=== PATIENT | male | born 1975 | race Caucasian/White ===

== ENCOUNTER 2019-01-05 13:23 | Inpatient (IN) | payer BC ==
[2019-01-05] MEDS ORDERED: VANCOMYCIN IVPB ONE (14:06)
[2019-01-05] MEDS ORDERED: NS 0.9% IVPB ONE (14:06)
[2019-01-05] MEDS ORDERED: cefTRIAXone(*) 2 GM in NS 0.9% 100 ML* 100 ML IVPB ONE (14:06)
--- NOTE | 2019-01-05 14:06 | ED ---
HPI Febrile Illness - HPI Summary HPI Summary: This patient is a 43 year old M presenting to [facility] accompanied by his with a chief complaint of a fever since this morning with the highest temperature of 101.3 F this morning [place]. His states that he had a cough for about a week that is productive. His stated that he had a low grade fever last night and started to have chills. He became nauseas and vomited 3 times last night and had 2 episodes of diarrhea. This morning when he woke up he had a fever of 101.3 F which was brought down to 99.1 F with the use of Aleve. He vomited more throughout the day. He stated that [place]ON he had neck pain that radiated down his back and his stated that he had a syncopal episode and fell into their shower door. He stated that he is currently suffering from photophobia and has intense pain behind his eyes that is rated an 8/10 in severity. The condition has been worsening since the onset. He also stated a headache. Pt denies any sore throat, CP, SOB, abdominal pain, dysuria, hematuria , myalgia, edema, rash, or dizziness. The symptoms are aggravated by nothing and alleviated by nothing. The pt has a PMHx of of a hernia repair. He stated that he does not drink or use any other substances. - History of Current Complaint Chief Complaint: EDNeckComplaint Time Seen by Provider: 01/05/19 13:32 Hx Obtained From: Patient, Family/Energy Conservation Technician - Onset/Duration: Started Weeks Ago - 1, Still Present, Worse Since - 01/04/19 Timing: Constant Temperature: 101.3 F Initial Severity: Mild Current Severity: Severe Pain Intensity: 8 Pain Scale Used: 0-10 Numeric Aggravating Factors: Nothing Alleviating Factors: OTC Medicine Associated Signs and Symptoms: Negative - sore throat, CP, SOB, abdominal pain, dysuria, hematuria, myalgia, edema, rash, or dizziness, Chills, Cough - productive, Diarrhea, Headache, Nausea, Stiff Neck, Vomiting - Allergy/Home Medications Allergies/Adverse Reactions: Allergies Allergy/AdvReac Type Severity Reaction Status Date / Time No Known Allergies Allergy Verified 09/19/15 12:23 PMH/Surg Hx/FS Hx/Imm Hx Previously Healthy: No Endocrine/Hematology History: Denies: Hx Diabetes Cardiovascular History: Denies: Hx Hypertension, Hx Pacemaker/ICD History: Denies: Hx Renal Disease Sensory History: Denies: Hx Hearing Aid Psychiatric History: Denies: Hx Panic Disorder - Surgical History Surgery Procedure, Year, and Place: UMBILICAL HERNIA BABY Infectious Disease History: No Infectious Disease History: Denies: Traveled Outside the [place] in Last 30 Days - Social History Occupation: Employed Full-time Lives: With Family Alcohol Use: Occasionally Substance Use Type: Reports: None Smoking Status (MU): Never Smoked Tobacco Review of Systems Positive: Fever - 101.3 F, Chills Positive: Photophobia ENT: Other - stiff neck Negative: Sore Throat Negative: Chest Pain Positive: Cough - productive. Negative: Shortness Of Breath Positive: Vomiting, Diarrhea, Nausea. Negative: Abdominal Pain Negative: dysuria, hematuria Negative: Myalgia, Edema Negative: Rash Neurological: Negative - dizziness Positive: Headache All Other Systems Reviewed And Are Negative: Yes Physical Exam - Summary Physical Exam Summary: Constitutional: Well-developed, Well-nourished, Alert. (-) Distressed Skin: Warm, Dry HENT: Normocephalic; Atraumatic, Oral mucosa is dry Eyes: Conjunctiva normal, Photophobia which is obvious, pain with movement of his eyes Neck: Diminished neck ROM 2nd to pain normal neck. (-) JVD, (-) Stridor, (-) Tracheal deviation Cardio: Rhythm regular, rate normal, Heart sounds normal; Intact distal pulses; The pedal pulses are 2+ and symmetric. Radial pulses are 2+ and symmetric. (-) Murmur Pulmonary/Chest wall: Effort normal. (-) Respiratory distress, (-) Wheezes, (-) Rales Abd: Soft, (-) tenderness, (-) Distension, (-) Guarding, (-) Rebound Musculoskeletal: (-) Edema Lymph: (-) Cervical adenopathy Neuro: Alert, Oriented x3 Psych: Mood and affect Normal Triage Information Reviewed: Yes Vital Signs On Initial Exam: Initial Vitals Temp Pulse Resp BP Pulse Ox 98.9 F 122 24 111/89 97 01/05/19 13:23 01/05/19 13:23 01/05/19 13:23 01/05/19 13:23 01/05/19 13:23 Vital Signs Reviewed: Yes Procedures - Lumbar Puncture Midline Lumbar Paraspinals Position: Sitting, Lateral Decubitus Aseptic Technique: Local Anesthesia, Lidocaine Anesthesia Used: 1.0% Lido Spinal Needle Used: 22 Gauge - 22 guage 3.5 inch Lumbar Puncture Note: The LP was prepped for the procedure and full consent was acquired at 1436. The pt's back was exposed and attempts to find a suitable injection site was completed at 1440. The needles used were 22 gauge 3.5 inch. Iodine was applied to the injection site to clean the area at 1445. Lidocaine Hydrochloride was used to numb the injection site at 1446. The pt was put into position, raising his legs to his chest and held in position by an aide before the lidocaine was applied at 1450. The lumbar was punctured and a check for pressure was taken at 1453. The flow stopped and a new site was used slightly above the original injection site at 1501. L4/L5 there was a minimal amount of fluid output. L3/L4 was used instead. Iodine was used to sterilize the new injection site at 1518. More lidocaine 1% was used to sterilize the injection site at the L3/L4 site. In the left lateral decubitus position we had an immediate flow which stopped quickly. Unable to gain flow when switched to L3/L4. was updated and the pt gave consent to change to the upright position. The pt was put in the upright position at 1552 and the procedure proceeded. Iodine was applied at 1554. The injection site for L4/L5 was prepped and lidocaine 1% was used as a local anesthetic. A sterile sheet was applied around the injection site. The fluid was able to be drawn after a successful spinal tap at 1603. Diagnostics - Vital Signs Vital Signs Temp Pulse Resp BP Pulse Ox 01/05/19 13:23 98.9 F 122 24 111/89 97 - Laboratory Result Diagrams: 01/05/19 14:16 01/05/19 14:16 Lab Statement: Any lab studies that have been ordered have been reviewed, and results considered in the medical decision making process. - CT Brain CT CT Interpretation Completed By: Radiologist Summary of CT Findings: 1. NO EVIDENCE FOR ACUTE INTRACRANIAL ABNORMALITY. 2. EFFUSION WITHIN THE LEFT MASTOID AIR CELLS. ED physician has reviewed this report. - EKG 1403 Cardiac Rate: Tachycardia - 109 BPM EKG Rhythm: Sinus Tachycardia ST Segment: Normal Ectopy: None Summary of EKG Findings: Sinus tachycardia at 109 BPM with Normal [place], Normal Interval, Normal ST, and no STEMI. Interpreted by Dr. Hoyos at 01/05/19 1410. Course/Dx - Course Course Of Treatment: This patient is a 43 year old M presenting to [facility] accompanied by his with a chief complaint of a fever since this morning with the highest temperature of 101.3 F this morning [place]. His states that he had a cough for about a week that is productive. He also had symptoms of N/V/ D, stiff neck, and chills. His PE found: Photophobia which is obvious, pain with movement of his eyes, Diminished neck ROM 2nd to pain, Oral mucosa is dry. The pt meet meningitis criteria. A LP was ordered and the risks and outcomes was disscused with the pt. He agreed and gave his consent to the test. His EKG shows Sinus tachycardia at 109 BPM with Normal [place], Normal Interval, Normal ST , and no STEMI. He received the following medications during his ED course: vancomycin, Acyclovir, Tylonel. The LP was prepped for the procedure and full consent was acquired at 1436. The pt's back was exposed and attempts to find a suitable injection site was completed at 1440. The needles used were 22 gauge 3.5 inch. Iodine was applied to the injection site to clean the area at 1445. Lidocaine Hydrochloride was used to numb the injection site at 1446. The pt was put into position, raising his legs to his chest and held in position by an aide before the lidocaine was applied at 1450. The lumbar was punctured and a check for pressure was taken at 1453. The flow stopped and a new site was used slightly above the original injection site at 1501. L4/L5 there was a minimal amount of fluid output. L3/L4 was used instead. Iodine was used to sterilize the new injection site at 1518. More lidocaine 1% was used to sterilize the injection site at the L3/L4 site. In the left lateral incubus position we had an immediate flow which stopped quickly. Unable to gain flow when switched to L3 /L4. was updated and the pt gave consent to change to the upright position. The pt was put in the upright position at 1552 and the procedure proceeded. Iodine was applied at 1554. The injection site for L4/L5 was prepped and lidocaine 1% was used as a local anesthetic. A sterile sheet was applied around the injection site. The fluid was able to be drawn after a successful spinal tap at 1603. His brain CT shows 1. NO EVIDENCE FOR ACUTE INTRACRANIAL ABNORMALITY. 2. EFFUSION WITHIN THE LEFT MASTOID AIR CELLS. His lab results show that he has abnormal values in CSF Glucose. He will be admitted to [facility] by Dr. Rey, Hospitalist, with a Dx of Viral meningitis, sepsis, and syncope for further care. - Diagnoses Provider Diagnoses: Viral meningitis, Syncope, Sepsis - Provider Notifications Discussed Care Of Patient With: Adam Rey Time Discussed With Above Provider: 17:46 Instructed by Provider To: Admit As Inpatient Discharge - Sign-Out/Discharge Documenting (check all that apply): Patient Departure - admitted Patient Received Moderate/Deep Sedation with Procedure: No - Discharge Plan Condition: Stable Disposition: ADMITTED TO [facility] Referrals: Hawa Dove NP [Primary Care Provider] - - Attestation Statements Document Initiated by Scribe: Yes Documenting Scribe: Jevon Angiln Provider For Whom Scribe is Documenting (Include Credential): Alban Hoyos MD Scribe Attestation: Jevon Roman, scribed for Alban Hoyos MD on 01/05/19 at 1737. Status of Scribe Document: Ready
[2019-01-05] MEDS: NS 0.9% IV ONE ×2 (14:09→14:22)
[2019-01-05 14:24] LABS: ABS Basophils 0.1 10^3/ul (0-0.2); ABS Lymphocytes 0.7 10^3/ul (1.0-4.8); ABS Monocytes 1.1 10^3/ul (0-0.8); ABS Neutrophils 18.9 10^3/ul (1.5-7.7); Hematocrit 41 % (42-52); Hemoglobin 14.5 g/dL (14.0-18.0); Lymphocyte % 3.3 %; Mean Corpuscular HGB Conc 35 g/dL (31-36); Mean Corpuscular Hemoglobin 31 pg (27-31); Mean Corpuscular Volume 89 fL (80-94); Mean Platelet Volume 6.7 fL (7.4-10.4); Platelet Count 253 10^3/uL (150-450); Red Blood Count 4.65 10^6 /uL (4.18-5.48); Red Cell Distribution Width 14 % (10-15); White Blood Count 20.8 10^3/uL (3.5-10.8)
[2019-01-05] MEDS ORDERED: Acetaminophen TAB* 325 MG PO ONE (14:33)
[2019-01-05 14:44] LABS: Activated Partial Thrombo Time 30.5 seconds (26.0-38.0); INR 1.22 (0.82-1.09)
[2019-01-05 14:47] LABS: Albumin 4.2 g/dL (3.2-5.2); Albumin/Globulin Ratio 1.4 (1-3); BUN/Creatinine Ratio 14.2 (8-20); Calcium 9.2 mg/dL (8.6-10.3); EGFR African American 91.8 (>60); EGFR Non-African American 75.9 (>60); Globulin 2.9 g/dL (2-4); Potassium 3.6 mmol/L (3.5-5.0); Total Bilirubin 1.1 mg/dL (0.2-1.0); Total Protein 7.1 g/dL (6.4-8.9)
[2019-01-05] MEDS ORDERED: Acyclovir IV(*) 780 MG in NS 0.9% 250 ML* 250 ML IVPB SCH (15:00)
[2019-01-05] MEDS ORDERED: Acyclovir IV(*) 780 MG in NS 0.9% 250 ML* 250 ML IVPB ONE (15:00)
[2019-01-05] MEDS ORDERED: Vancomycin(*) 2,000 MG in NS 0.9% 500 ML* 500 ML IVPB ONE (15:00)
[2019-01-05 16:40] LABS: Body Fluid Source Cerebral Spinal
[2019-01-05 16:58] LABS: CSF Glucose 87 mg/dL (40-70)
[2019-01-05 17:20] LABS: Body Fluid Mono 2 %
[2019-01-05 17:33] LABS: Urine Appearance Clear; Urine Bacteria Absent (Absent); Urine Bilirubin Negative (Negative); Urine Blood 2+ (Negative); Urine Color Yellow; Urine Glucose Negative (Negative); Urine Ketones Negative (Negative); Urine Nitrite Negative (Negative); Urine Protein Negative (Negative); Urine Red Blood Cell 2+(6-10/hpf) (Absent); Urine Specific Gravity 1.018 (1.010-1.030); Urine Urobilinogen Negative (Negative); Urine White Blood Cell Trace(0-5/hpf) (Absent)
[2019-01-05] MEDS ORDERED: Morphine INJ* 2 MG/ML 1 ML SYRINGE (TWO MG - NEW SYRINGE VERSION) IV PRN (17:55)
[2019-01-05] MEDS ORDERED: Ondansetron INJ* 2 MG/ML VIAL IV PRN (17:55)
[2019-01-05 18:56] LABS: RBC Parasite Smear No Parasites Seen (No Parasite)
--- NOTE | 2019-01-05 19:40 | HP ---
CC: Hawa Jones NP HISTORY AND PHYSICAL: DATE OF ADMISSION: 01/05/19 PRIMARY CARE PROVIDER: Hawa Jones NP CHIEF COMPLAINT: Fever, headaches. HISTORY OF PRESENT ILLNESS: This is a 43-year-old male with no significant past medical history, who presented to the emergency room because of fever. He reports that he noted that he had a fever last night of 99.1 Fahrenheit, he woke up this morning and the fever was 101.3. He took Aleve. The fever was associated with headaches as well as light sensitivity. He states that the headache is frontal in nature, but at times is generalized dull headache, with no alleviating factors. He states the headache got better when he came to the emergency room slightly and when he took some Aleve, but headache is always there. He does not have any nausea or vomiting, no shortness of breath, no chest pain. He is having some cough, but that is chronic in nature, has white- colored sputum production. He has exposure to ticks- in his backyard, multiple ticks. He noted a tick on himself about two weeks ago and few days ago he saw a tick in his garage. PAST MEDICAL HISTORY: None. PAST SURGICAL HISTORY: Hernia repair. HOME MEDICATIONS: None. ALLERGIES: No known drug allergies. FAMILY HISTORY: Mother: Hypertension. Father: Coronary artery disease with stent placement and has immunodeficiency syndrome, on IVIG. SOCIAL HISTORY: The patient lives at home. Does not smoke, no alcohol use. REVIEW OF SYSTEMS: He does not have any dysuria, no urinary hesitancy, no recent weight loss. He is having fevers with chills. HEENT: No sore throat, no change in his vision or his hearing; however, he is having light sensitivity. Chest: He does not have any chest pain, no palpitations, no lower extremity edema. Respiratory: He is having cough; however, no shortness of breath, no paroxysmal nocturnal dyspnea. Abdomen: He does not have any abdominal pain, no nausea, no vomiting, no diarrhea. Extremities: He does not have any leg pain or any arm pain. Neurological: He does not have any confusion, no weakness. PHYSICAL EXAMINATION GENERAL: This is an obese male, lying in bed, in no acute distress. VITAL SIGNS: Blood pressure of 120/63; heart rate of 100; respiratory rate of 13; oxygenation of 96% on room air; T-max here is 101.4 at 1445, currently the temperature is 99.3. HEENT: Pupils are equal, round, reactive to light. Atraumatic, normocephalic. There is no oropharyngeal erythema. NECK: There is no cervical lymphadenopathy. Neck is supple with range of motion intact. LUNGS: There is no tachypnea, no use of accessory muscles. Lungs are clear to auscultation bilaterally with no wheezing, rales, or rhonchi. HEART: No chest wall tenderness. Regular, tachycardia. No murmur. ABDOMEN: Bowel sounds are normoactive in all 4 quadrants. Abdomen is soft, nontender, nondistended. EXTREMITIES: There is no lower extremity edema. NEUROLOGICAL: Alert and oriented x3. Range of motion of the neck is intact. Speech is clear and coherent. No facial droop. No facial asymmetry. Motor is 5/5 in all 4 extremities. SKIN: There are no lesions. No rashes noted on exam. DIAGNOSTIC STUDIES/LAB DATA: White count of 20.8 with absolute neutrophil count of 18.9, hemoglobin of 14.5, platelets of 253. INR 1.22. Sodium of 136, potassium of 3.6, BUN 15, creatinine 1.06, glucose of 156. Total bilirubin of 1.10, AST is 17, ALT 27, alkaline phosphatase of 97. Urinalysis shows 2+ blood , negative for nitrites, leukocyte esterase is negative, wbc's trace, absent bacteria, glucose is negative. CSF showed colorless fluid, clear, WBC of 1, RBC of 2, total cell count of 5, glucose of 87, protein of 35, lymphocytes of 3 with monocytes of 2. The patient underwent a CT scan, which showed no evidence of acute intracranial abnormality and there is effusion within the left mastoid air cells. IMPRESSION AND PLAN: This is a 43-year-old male with no significant past medical history, who presents to the emergency room with fever. The patient also reports to me that he has history of tick bites and [place] the [place] there are multiple ticks, he remembers getting a tick bite about 2 weeks ago, he also noted a tick few days ago in his garage. 1. Fever. At this point, we do not have a definitive source of infection. The patient did receive in the emergency room vancomycin, acyclovir, Rocephin. The patient also underwent an LP. Based on the LP, I am not totally convinced that this is bacterial meningitis. We will pursue tick-borne illness workup. For now, we will continue Rocephin. Follow up culture report as well as further CSF report. I have ordered blood work for babesia, ehrlichia, anaplasma , as well as Lyme disease. 2. Elevated bilirubin. We will monitor this. At this point, the patient does not appear clinically jaundiced. We will obtain an ultrasound of the abdomen. 3. Continue IV fluids, pain control, as well as nausea control. The patient will be on regular diet. The patient will be placed on the medical floor. [id number]/[facility] #: [id number] AMBER
[2019-01-05] MEDS: NS 0.9% 1000 ML** 1,000 ML IV SCH (20:04)
[2019-01-05] MEDS: Acetaminophen TAB* 325 MG PO PRN (22:23)
[2019-01-06] MEDS: Acyclovir IV(*) 780 MG in NS 0.9% 250 ML* 250 ML IVPB SCH ×3 (00:24→15:25)
[2019-01-06 05:40] LABS: ABS Lymphocytes 1.7 10^3/ul (1.0-4.8); ABS Monocytes 1.3 10^3/ul (0-0.8); ABS Neutrophils 17.8 10^3/ul (1.5-7.7); Hematocrit 37 % (42-52); Lymphocyte % 8.3 %; Mean Corpuscular HGB Conc 35 g/dL (31-36); Mean Corpuscular Hemoglobin 32 pg (27-31); Mean Corpuscular Volume 91 fL (80-94); Mean Platelet Volume 7.1 fL (7.4-10.4); Platelet Count 202 10^3/uL (150-450); Red Blood Count 4.11 10^6 /uL (4.18-5.48); Red Cell Distribution Width 14 % (10-15); White Blood Count 20.8 10^3/uL (3.5-10.8)
[2019-01-06] MEDS: Acetaminophen TAB* 325 MG PO PRN ×3 (05:45→20:02)
[2019-01-06 05:58] LABS: Albumin 3.5 g/dL (3.2-5.2); Albumin/Globulin Ratio 1.5 (1-3); BUN/Creatinine Ratio 11.9 (8-20); Calcium 8.3 mg/dL (8.6-10.3); EGFR African American 97.1 (>60); EGFR Non-African American 80.2 (>60); Globulin 2.4 g/dL (2-4); Potassium 3.4 mmol/L (3.5-5.0); Total Bilirubin 0.8 mg/dL (0.2-1.0); Total Protein 5.9 g/dL (6.4-8.9)
[2019-01-06] MEDS: NS 0.9% 1000 ML** 1,000 ML IV SCH ×2 (07:47→20:03)
[2019-01-06] MEDS ORDERED: Butalb/Acetamin/Caff TAB* 1 TAB PO ONE (12:01)
--- NOTE | 2019-01-06 12:02 | PN ---
Subjective Date of Service: 01/06/19 Interval History: Having headache with light sensitivity, no neck pain, Did have fever overnight. Currently afebrile. Family at bedside. Objective Active Medications: Acetaminophen (Tylenol Tab*) 650 mg PO Q6H PRN PRN Reason: PAIN - MODERATE Last Admin: 01/06/19 11:04 Dose: 650 mg Ceftriaxone Sodium 2 gm/ (Sodium Chloride) 100 mls @ 200 mls/hr IVPB Q24HR@ 1400 [facility] Sodium Chloride (Ns 0.9% 1000 Ml) 1,000 mls @ 100 mls/hr IV PER RATE [facility] Last Admin: 01/06/19 07:47 Dose: 100 mls/hr Acyclovir Sodium 780 mg/ (Sodium Chloride) 265.6 mls @ 250 mls/hr IVPB 0730, 1530,2330 [facility] Last Admin: 01/06/19 07:44 Dose: 250 mls/hr Morphine Sulfate (Morphine Inj (Syringe))*) 2 mg IV Q6H PRN PRN Reason: PAIN - SEVERE Ondansetron HCl (Zofran Inj*) 4 mg IV Q6H PRN PRN Reason: NAUSEA Vital Signs - 8 hr 01/06/19 01/06/19 01/06/19 07:30 11:11 11:15 Temperature 98.7 F 99.3 F Pulse Rate 91 95 Respiratory 20 16 18 Rate Blood Pressure 137/70 138/74 (mmHg) O2 Sat by Pulse 95 95 98 Oximetry Oxygen Devices in Use Now: None Appearance: young male lying in bed, not in distress Eyes: PERRLA Ears/Nose/Mouth/Throat: - - poor dentition, mild facial swelling. no sinus tenderness. No neck tenderness, ROM intact, no nuchal rigidity. Respiratory: Symmetrical Chest Expansion and Respiratory Effort, Clear to Auscultation Cardiovascular: NL Sounds; No Murmurs; No JVD, RRR Abdominal: NL Sounds; No Tenderness; No Distention, No Hepatosplenomegaly Extremities: No Edema Neurological: Alert and Oriented x 3 Result Diagrams: 01/06/19 04:41 01/06/19 04:41 Microbiology and Other Data: Microbiology 01/05/19 16:23 CSF Gram Stain (Tube 3) - Final Cerebral Spinal Fluid CSF Culture - Preliminary No Growth Day 1 Assess/Plan/Problems-Billing Assessment: - Patient Problems (1) Fever Current Visit: Yes Status: Acute Code(s): R50.9 - FEVER, UNSPECIFIED SNOMED Code(s): 739381685 Comment: Fever with headache, LP done- clear CSF with total 5 cells, doubt bacterial meningitis. in ED: rec'd vanc, rocephin, acyclovir. having headache w/ photophobia- could be migraine- trial of fiorecet. exposure to ticks: tickborne work up pending results blood cultures negative c/w rocephin, IV fluids antipyretics await resuls of lyme's test, ehrlichia, anaplasma. blood cultures
[2019-01-06] MEDS: cefTRIAXone(*) 2 GM in NS 0.9% 50 ML* 100 ML IVPB SCH (13:42)
[2019-01-07 06:06] LABS: ABS Eosinophils 0.1 10^3/ul (0-0.6); ABS Lymphocytes 1.9 10^3/ul (1.0-4.8); ABS Neutrophils 9.9 10^3/ul (1.5-7.7); Eosinophil % 0.5 %; Hematocrit 36 % (42-52); Hemoglobin 12.5 g/dL (14.0-18.0); Lymphocyte % 14.7 %; Mean Corpuscular HGB Conc 35 g/dL (31-36); Mean Corpuscular Hemoglobin 31 pg (27-31); Mean Corpuscular Volume 89 fL (80-94); Mean Platelet Volume 7.3 fL (7.4-10.4); Platelet Count 208 10^3/uL (150-450); Red Blood Count 4.05 10^6 /uL (4.18-5.48); Red Cell Distribution Width 14 % (10-15); White Blood Count 12.9 10^3/uL (3.5-10.8)
[2019-01-07 06:26] LABS: Calcium 8.5 mg/dL (8.6-10.3); EGFR African American 109.5 (>60); EGFR Non-African American 90.5 (>60); Potassium 3.1 mmol/L (3.5-5.0)
[2019-01-07] MEDS ORDERED: Potassium Chlor TAB* 20 MEQ TAB.ER PO ONE (08:00)
[2019-01-07] MEDS: Acetaminophen TAB* 325 MG PO PRN (09:35)
--- NOTE | 2019-01-07 09:41 | PN ---
Subjective Date of Service: 01/07/19 Interval History: Afebrile Headache is 1/10, reports improved significantly after taking fiorecet yesterday. Having left ear pain Objective Active Medications: Acetaminophen (Tylenol Tab*) 650 mg PO Q6H PRN PRN Reason: PAIN - MODERATE Last Admin: 01/07/19 09:35 Dose: 650 mg Ceftriaxone Sodium 2 gm/ (Sodium Chloride) 100 mls @ 200 mls/hr IVPB Q24HR@ 1400 [facility] Last Admin: 01/06/19 13:42 Dose: 200 mls/hr Morphine Sulfate (Morphine Inj (Syringe))*) 2 mg IV Q6H PRN PRN Reason: PAIN - SEVERE Ondansetron HCl (Zofran Inj*) 4 mg IV Q6H PRN PRN Reason: NAUSEA Vital Signs - 8 hr 01/07/19 01/07/19 02:10 07:25 Temperature 99.1 F 98.3 F Pulse Rate 85 84 Respiratory 20 20 Rate Blood Pressure 142/76 118/59 (mmHg) O2 Sat by Pulse 98 95 Oximetry Oxygen Devices in Use Now: None Appearance: Sitting on chair, not in distress Eyes: PERRLA Ears/Nose/Mouth/Throat: - - Left TM visualized, clear, ear: no exudates noted, no erythema Respiratory: Symmetrical Chest Expansion and Respiratory Effort, Clear to Auscultation Cardiovascular: NL Sounds; No Murmurs; No JVD, RRR Skin: No Rash or Ulcers Neurological: Alert and Oriented x 3 Result Diagrams: 01/07/19 05:02 01/07/19 05:02 Microbiology and Other Data: Microbiology 01/05/19 16:23 CSF Gram Stain (Tube 3) - Final Cerebral Spinal Fluid CSF Culture - Preliminary No Growth Day 2 01/05/19 17:15 Urine Culture - Final Urine No Growth (<1,000 CFU/mL) 01/05/19 14:15 Aerobic Blood Culture - Preliminary Blood Venous No Growth Day 1 Anaerobic Blood Culture - Preliminary No Growth Day 1 01/05/19 14:15 Aerobic Blood Culture - Preliminary Blood Venous No Growth Day 1 Anaerobic Blood Culture - Preliminary No Growth Day 1 Assess/Plan/Problems-Billing Assessment: - Patient Problems (1) Fever Current Visit: Yes Status: Acute Code(s): R50.9 - FEVER, UNSPECIFIED SNOMED Code(s): 510537596 Comment: Fever with headache, LP done- clear CSF with total 5 cells, doubt bacterial meningitis. in ED: rec'd vanc, rocephin, acyclovir. headache improved after fiorecet- likely was migraine. exposure to ticks: tickborne work up pending results- lyme test negative. blood cultures negative c/w rocephin. if blood cultures remain negative later today X 48 hours- plan for discharge. (2) Hypokalemia Current Visit: Yes Status: Acute Code(s): E87.6 - HYPOKALEMIA SNOMED Code( s): 02354308 Comment: repletion ordered
[2019-01-07] MEDS: cefTRIAXone(*) 2 GM in NS 0.9% 50 ML* 100 ML IVPB SCH (14:04)
[2019-01-07] MEDS ORDERED: Butalb/Acetamin/Caff TAB* 1 TAB PO ONE (15:24)
[2019-01-07 18:32] VITALS: BP 133/84
--- NOTE | 2019-01-07 21:41 | DS ---
DISCHARGE SUMMARY: DATE OF ADMISSION: 01/05/19 DATE OF DISCHARGE: 01/07/19 PRIMARY CARE PROVIDER: Hawa Jones NP. REASON FOR ADMISSION: Fevers and headache. HOSPITAL COURSE: This is a 43-year-old male with no significant past medical history, who had presented to the emergency room because of fever and headaches. The patient reports to me that he did not have any neck pain throughout the entire course or prior to coming to the emergency room. In the emergency room, the patient was seen and evaluated and a CAT scan of the head was done which showed no evidence of acute intracranial abnormality. There was effusion noted in the left mastoid air cells. The patient underwent LP as well in the emergency room and the lumbar puncture showed CSF was colorless fluid, clear, wbc of 1, rbc of 2, total cell count of 5, glucose of 87, protein of 35 with lymphocytes 3 and monocytes 2. The patient was also found to have elevated bilirubin. Total bilirubin was 1.10. Subsequently, hospital service was called for admission. The patient was admitted to the floor, was started on IV fluids. In the emergency room, had received acyclovir, Rocephin, and vancomycin. The patient was empirically started on Rocephin. The patient had reported during the admission that he had exposure to tics. For this, blood work for Babesia, ehrlichia, anaplasma, and Lyme disease were sent off. The patient was also started on IV fluids. The patient also underwent a liver ultrasound. Subsequently, the patient continued to improve. The patient's T-max was 101.4 on 01/05/19 at 1445, and the last time he had any sort of fever was . He had 100.2 Fahrenheit T-max on 01/05/19 at 1926, that is not considered fever. The patient's headache also improved. The patient did receive 1 dose of Fioricet which helped his headache as well as had his photosensitivity out. Blood cultures have been negative x48 hours. His white count which was 20.8 during admission had transitioned to 12.9 this morning. The patient also underwent an abdominal ultrasound which showed no evidence of gallstone or acute process. The liver is mildly echogenic and measures 16 cm in length. The patient continued to improve. On the day of discharge, which is today, the patient reports that he is feeling well. His original plan was to drive to [place] tomorrow as he is anticipating a job start date of 01/11/19 which is in 4 days. He thinks that he will talk to his job to see if they can possibly postpone his start date to allow for easier transition. PHYSICAL EXAMINATION: See my progress note from today. DISCHARGE DIAGNOSES: 1. Fever, likely viral illness. 2. Systemic inflammatory response syndrome, in the setting of viral illness. 3. Hypokalemia, was repleted. 4. Elevated total bilirubin, resolved. DISCHARGE MEDICATIONS: Because the patient will not have any followup, I am sending him home on cefuroxime 500 mg b.i.d., dispensed 8 tablets, finish a total of 7-day course of antibiotics. I did notify the patient that we do grow the blood cultures out for a total of 5 days and he should discuss this with his nurse practitioner Ms. Hawa Jones, primary care provider, and just touch base with her before he leaves for [place] to check the blood cultures official report. The patient has been told to return to the emergency room for any further fevers , chills, rash, or if any new symptoms occur. Followup plan discussed with the patient. He should follow up with his primary care provider prior to leaving for [place]. Discharge disposition is home with his . Discharge condition is improved. [id number]/[facility] #: [id number] AMBER
[2019-01-09 17:08] LABS: Anaplasma phagocytophilum Negative (Negative); Ehrlichia chaffeensis Negative (Negative); Ehrlichia ewingii/canis Negative (Negative); Ehrlichia muris eauclairensis Negative (Negative)
== END 2019-01-07 15:50 | disposition home or self-care (01) | DRG 723 ==
LOC: ED 13:23 → MED 17:54
PROVIDERS: ADMIT Internal Medicine; ATTEND Internal Medicine
PROC: 009U3ZX Drainage of Spinal Canal, Percutaneous Approach, Diagnostic (ICD-10-PCS; principal; 2019-01-05)
DX: B34.9 Viral infection, unspecified (principal); R65.10 Systemic inflammatory response syndrome (SIRS) of non-infectious origin without acute organ dysfunction; Z68.39 Body mass index [BMI] 39.0-39.9, adult; E87.6 Hypokalemia; E66.9 Obesity, unspecified; R51 Headache; R94.5 Abnormal results of liver function studies; H92.02 Otalgia, left ear; Z82.49 Family history of ischemic heart disease and other diseases of the circulatory system
CPT/HCPCS: 36415; 70450; 76705; 80048; 80053; 81003; 81015; 82945; 83605; 84157; 84484; 85025; 85610; 85730; 86618; 87015; 87040; 87070; 87086; 87205; 87207; 87798; 89051; 93005; 99285; A9270-GY; J0133; J0696; J3370